=== PATIENT | male | born 1930 | race Caucasian/White ===

== ENCOUNTER 2020-03-15 07:53 | Outpatient (CLI) | payer MEDICARE, BC ==
[2020-03-15] VITALS (8 sets, daily range): BP systolic 89–161; BP diastolic 29–67
[~2020-03-15] VITALS: Ht 147.3 cm; Wt 86.0 kg
[2020-03-15] MEDS ORDERED: regadenoson 0.4mg/5ml syringe IV ONE (10:10)
[2020-03-15] MEDS ORDERED: nitroGLYCERIN 0.4mg SUBLingual tab SL PRN (10:10)
[2020-03-15] MEDS ORDERED: aminophylline 250mg/10ml inj. IV PRN (10:10)
[2020-03-15] MEDS ORDERED: normal saline 500ml IV soln 500 ML IV ONE (10:10)
== END 2020-03-15 23:59 | disposition home or self-care (01) ==
LOC: RAD 07:53
PROVIDERS: ATTEND Internal Medicine Cardiovascular Disease
DX: I25.10 Atherosclerotic heart disease of native coronary artery without angina pectoris (principal); R06.02 Shortness of breath
CPT/HCPCS: 78452; 93017; A9500; J0280; J2785; J7040